=== PATIENT | female | born 1955 | race Caucasian/White ===

== ENCOUNTER → 2017-03-25 | Emergency (ER) | payer OTHER ==
[~2017-03-25] VITALS: Ht 149.9 cm; Wt 90.7 kg
[~2017-03-25] MED LIST: LODINE500 MG PO; MEDROL4 MG PO; NEURONTIN600 MG PO
== END | disposition home or self-care (01) ==
LOC: ER 13:58
DX: K57.30 Diverticulosis of large intestine without perforation or abscess without bleeding (principal); R10.31 Right lower quadrant pain